=== PATIENT | female | born 1995 | race African-American/Black ===

== ENCOUNTER 2024-08-11 18:32 | Emergency (ER) | payer SELFPAY ==
[~2024-08-11] VITALS: Ht 160 cm; Wt 70.0 kg
[2024-08-11 18:34] VITALS: O2SAT 99
[2024-08-11] MEDS: ACETAMINOPHEN 325MG TABLET PO ONE (20:11)
[2024-08-11 20:41] VITALS: BP 119/74; PULSE 84; RESP 18; TEMP 37; O2SAT 99
== END 2024-08-11 20:41 | disposition home or self-care (01) ==
LOC: ER 18:32
DX: M25.562 Pain in left knee (principal); Z88.0 Allergy status to penicillin
CPT/HCPCS: 73560; 99283; Z7610